=== PATIENT | male | born 1955 | race Caucasian/White ===

== ENCOUNTER → 2021-01-31 | Outpatient (CLI) | payer OTHER, MEDICARE ==
--- NOTE | 2021-02-04 19:07 | PATH ---
[facility] [address] [place] [address] PATHOLOGY RPT PROCEDURE Name: RAFAEL DARDEN Room #: REG [facility] M.R.#: [id number] Admission: 01/31/21 Date of : 55 Discharge: Report #: [id number] Path Case #: [id number] [facility] Accession Number: [id number] . 01 Material submitted: . neck - LEFT NECK MASS. Modifiers: left . 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 - No lymph node tissue present. - Negative for malignant features within the sections examined. (IUV:pit; 02/01/2021) QTP 02/01/2021 1518 Local . 02 Addendum: . Special studies report received from [facility], [address] [place] [address], [place] [address] [address], [place], [address], on case [id number], labeled with their number [id number], dated 02/02/2021. . Flow Cytometry: Hematologic Neoplasia Assessment . Clinical History Localized swelling . Indication For Study Evaluation for hematolymphoid neoplasia . Specimen Tissue, Left Neck . Viability 40% (7AAD exclusion) . Interpretation Tissue, Left Neck: - No evidence for a B-cell non-Hodgkin lymphoma (limited study). . Comments Hodgkin lymphoma and some large cell lymphomas cannot be categorically excluded by flow cytometric analysis. A limited panel of antibodies was performed due to low cell yield. Correlation with the morphologic findings and other clinical data is recommended. . Results should be interpreted with caution due to reduced viability of the specimen (40%). [address] [address] PATHOLOGY RPT PROCEDURE Name: RAFAEL DARDEN [place] Room #: REG [facility].#: [id number] Admission: 01/31/21 Date of : 55 Discharge: Report #: [id number] Path Case #: [id number] . Populations Analyzed Lymphocytes: 10% A limited panel of antibodies (kappa, lambda, CD5, CD10, CD19, CD20, and CD45) was performed due to low cell yield. There is a mixed population of B-lymphocytes (0.5%) and T-lymphocytes (9.5%). No B-cell light chain restriction is detected. T-cells express CD5. Other quintanilla T-cell antigens are not evaluated. CD45 Negative 85% No significant reactivity with the markers tested Events/Debris: (may represent degenerated cells, unlysed red blood cells, debris, etc.) . Morphologic Evaluation A slide was reviewed for manager of quality purposes only. . Specimen Description Due to low cell count, the lab is unable to provide an accurate cell yield. A limited panel of antibodies was performed. This sample is less than 50% viable which is considered suboptimal for routine clinical flow cytometry analysis. The analysis, however, is being reported because the sample is considered irreplaceable. Flow cytometry data derived from acquisition with less than 10,000 events needs to be interpreted within the context of all clinical, laboratory, and morphologic information. . Reagent(s) Used CD5, CD10, CD19, CD20, CD45, kappa, lambda . at [place], 71lbs. Umberto Fisher MD Hematopathologist . Intended Use Flow cytometry is optimally used to immunophenotypically characterize abnormal populations when they are detected. Negative flow cytometry results do not exclude lymphoma or neoplasia. Possible false negative flow cytometry results may occur in, but are not limited to, the following: neoplastic cells in Hodgkin lymphoma are not typically adequately represented by routine clinical flow cytometry; neoplastic cells may be lost or inadequately represented due to degeneration, sample processing, sampling artifact, or patchy involvement; plasma cells are typically underrepresented by flow cytometry; immature cells/blasts may be underrepresented due to hemodilution; myeloproliferative disorders and low grade myelodysplasia may not have immunophenotypic abnormalities or increased blasts. Correlation with all available clinical, laboratory, and morphologic data is always necessary to assess for the possibility of false negative flow cytometry results and to establish a diagnosis. [facility] [address] [place] [address] PATHOLOGY RPT PROCEDURE Name: RAFAEL DARDEN Room #: REG [facility].Willie#: [id number] Admission: 01/31/21 Date of : 55 Discharge: Report #: [id number] Path Case #: [id number] Each marker in this analysis was used to assess for potential antigenic abnormalities or to evaluate detected abnormalities. . Any image or images that accompany this report are self pay representative images only and should not be used to render a diagnosis. . Disclaimer(s) This test was developed and its performance characteristics determined by [facility]. It has not been cleared or approved by the Food and Drug Administration. . [facility] is a business unit of [facility] a wholly-owned subsidiary of [facility]. . This test was performed at [facility]. at [address], [place], [address] - Mobile Phlebotomist: Abhi Elizondo MD. . For inquiries, the physician may contact Lab: [phone] . A complete copy of the report is on file. . Professional services performed by [facility] at [address], [place] [address]. Technical services performed by [facility] at [address], [place] [address]. . (IUV:amj 02/04/2021) . AZJ/02/04/2021 Addendum Electronically Signed by Yolie Tai MD, Pathologist . 02 Electronically signed: . Yolie Tai MD, Pathologist NPI- [id number] . 01 Gross description: . The specimen is received in 2 containers. The first container is received in formalin, labeled "Rupesh, Rafael N, LT neck mass, LT neck lymph node". It consists of multiple peters-brown, irregular soft tissue fragments measuring 1.0 x 0.3 x 0.1 cm in aggregate. The specimen is placed in a biopsy bag and entirely submitted in A1. The second container is received in RPMI, labeled "Rafael Darden, LT neck mass". It consists of multiple peters-white, irregular soft tissue fragments measuring 0.5 x 0.5 x 0.1 cm in aggregate. The specimen is entirely submitted in RPMI and forwarded to send outs for further [place] [address] [place] [address] PATHOLOGY RPT PROCEDURE Name: RAFAEL DARDEN Room #: REG [facility].#: [id number] Admission: 01/31/21 Date of : 55 Discharge: Report #: [id number] Path Case #: [id number] processing. (MRF; 01/31/2021) MFE/MFE 01/31/2021 [facility] Local . 02 Pathologist provided ICD-10: R22.1 . 02 CPT . 799198 Specimen Comment: A courtesy copy of this report has been sent to [phone] Specimen Comment: Report sent to Specimen Comment: A duplicate report has been generated due to demographic updates. Performed at: 01 [facility] [address], [place] [id number] MD Mayur Clemente MD Phone: [phone] Performed at: 02 [address] StreetTrub[address] PharmaceuticalsH[place], [place] [id number] MD Yolie Tai MD Phone: [phone]
== END | disposition home or self-care (01) ==
LOC: ULTRA 08:30
PROVIDERS: ATTEND Anesthesiology Pain Medicine
DX: R22.1 Localized swelling, mass and lump, neck (principal)